=== PATIENT | female | born 1950 | race Caucasian/White ===

== ENCOUNTER → 2021-03-05 | Outpatient (CLI) | payer OTHER ==
[~2021-03-05] MED LIST: ALEVE220 M1 PO; CBD OIL SUBLING; FISH OIL 1,0001 EAC9 PO; JUICE PLUS PO; MAGNESIUM250 M1 PO; REMERON15 M2 PO; TURMERIC500 M2 PO
[2021-03-05 13:40] LABS: HEMATOCRIT 40.1 % (37.0-47.0); HEMOGLOBIN 13.2 gm/dL (12.0-15.0); MCH 31.4 pg (26.0-34.0); MCHC 32.9 g/dL (28.0-37.0); MCV 95.2 fL (80.0-100.0); RBC 4.21 mil/uL (4.20-5.00); RDW 13.4 % (10.5-14.5)
[2021-03-05 13:59] LABS: ALBUMIN 3.9 g/dL (3.4-5.0); CALCIUM 9.6 mg/dL (8.5-10.1); CREATININE 0.7 mg/dL (0.6-1.0); POTASSIUM 4.6 mmol/L (3.5-5.1)
[2021-03-05 14:07] LABS: INR 0.92; PROTIME 10.1 Seconds (10.5-12.1)
[2021-03-05 14:10] LABS: URINE BILIRUBIN NEGATIVE (Negative); URINE BLOOD NEGATIVE (Negative); URINE CLARITY CLEAR; URINE COLOR YELLOW; URINE GLUCOSE-RANDOM* NEGATIVE (Negative); URINE KETONES NEGATIVE (Negative); URINE LEUKOCYTES-REFLEX NEGATIVE (Negative); URINE NITRITE-REFLEX NEGATIVE (Negative); URINE PROTEIN (DIPSTICK) NEGATIVE (Negative); URINE UROBILINOGEN 0.2 E.U./dl (0.2-1.0)
== END ==
LOC: PAC 12:48
PROVIDERS: ATTEND Orthopaedic Surgery
DX: Z01.812 Encounter for preprocedural laboratory examination (principal); M16.11 Unilateral primary osteoarthritis, right hip; Z96.641 Presence of right artificial hip joint

== ENCOUNTER 2021-03-12 07:16 | Observation (INO) | payer OTHER ==
[2021-03-12] VITALS (9 sets, daily range): BP systolic 117–151; BP diastolic 64–78
[~2021-03-12] VITALS: Ht 177.8 cm; Wt 66.8 kg
--- NOTE | 2021-03-12 11:58 | O ---
[facility] [place] [address] OPERATIVE REPORT Name: HANNAH COSTA Room #: 150-1 [facility] M.R.#: [id number] Admission: 03/12/21 Attend Phys: Alexey Metzger MD Discharge: Date of : 52 Report #: [id number] THIS REPORT FOR: cc: ELISSA VITAL Physician not on staff Alexey Metzger MD ~ DATE OF SERVICE: 03/12/2021 PREOPERATIVE DIAGNOSIS: End-stage degenerative arthritis, right hip. POSTOPERATIVE DIAGNOSIS: End-stage degenerative arthritis, right hip. PROCEDURE: Right total hip arthroplasty. SURGEON: Alexey Metzger MD INDICATIONS: This slender, fit generally healthy 70-year-old female has severe end-stage degenerative arthritis of the right hip with evidence of some hip dysplasia and mild lateral subluxation with moderate deformity of the femoral head. She has tried conservative measures without benefit and has elected to go ahead with total hip replacement. DESCRIPTION OF PROCEDURE: The patient was taken to the operating room where she was placed under general anesthesia. Prophylactic intravenous antibiotics were administered. She was turned to the left lateral decubitus position. The right hip, thigh and leg were meticulously prepped and draped. A slightly curving posterolateral skin incision was made centered over the greater trochanter. This was carried through fascia and muscle to expose the posterior aspect of the hip joint. The short external rotators and caps were taken down and preserved and tagged with several #1 FiberWire sutures. The hip was dislocated posteriorly. Marked degenerative change on the femoral head and acetabulum was noted. A femoral neck osteotomy was performed. The canal was prepared using reamers and hand broaches. The Nichols and Nephew hip system was utilized. The size 12 Synergy porous femoral component seemed to fit most appropriately. This was removed and the attention directed to the acetabulum. The acetabulum was sequentially reamed, gradually advancing to a 48 mm reamer. The Nichols and Nephew size 48, 3-hole StikTite shell was selected. This was impacted into her [place]au acetabulum in alignment with her acetabulum, which placed this at about 45 degrees off of vertical and about 20 degrees of anteversion. It seated nicely and appeared to be secure. In addition, two cancellous screws were placed through the apical holes engaging good periacetabular bone adding nicely to secure fixation. A 32 mm diameter polyethylene insert was then applied placing the 20-degree elevated rim at about the 10 o'clock posterior position. This was gently impacted into place. It seated nicely and appeared to be secure. The permanent Nichlos and Nephew size 12 Synergy porous femoral component was then inserted into the canal, placing this in about 15-[address] [address] OPERATIVE REPORT Name: HANNAH COSTA Room #: 150-1 [facility] M.R.#: [id number] Admission: 03/12/21 Attend Phys: Alexey Metzger MD Discharge: Date of : 52 Report #: [id number] anteversion. It also seated nicely and appeared to be secure. After a trial reduction, the hip seemed best suited for a +4 mm neck length. The 32 mm head using the cobalt chromium style with a +4 mm neck length was selected. This was impacted on the Winter taper. The hip was reduced. Alignment, range of motion, stability and leg length were assessed and felt to be satisfactory. The capsule and short external rotators were then repaired back to bone using #1 FiberWire sutures passed through small drill holes in greater trochanter. This also added nicely to stability. A single Hemovac was left in the wound exiting through a separate stab incision. The fascia was then closed with multiple #1 Vicryl sutures. The deeper adipose tissues and subcutaneous tissues were closed with 0 Monocryl. The skin was closed with skin jose. A sterile dressing was applied. The patient was awakened and returned to recovery room in good condition. <ELECTRONICALLY SIGNED> By: Alexey Metzger MD 03/12/21 1158 [id number] Alexey Metzger MD /nt
--- NOTE | 2021-03-12 14:04 | NUR ---
ASSUMED CARE OF PT AT 1325 THIS AFTERNOON. PT HAD TTL RT HIP REPLACEMENT WITH NADIYA DRESSING, ADRIAN HOSE, KNEE HIGH, SCD'S AND ICE PACKS. DRESSING IS C/D/I. VSS, CHARGE NURSE WILL PERFORM SYSTEMS ASSESSMENT. MEDS AND TX GIVEN NEEDED AND SCHEDULED. WILL MONITOR AND NOTE ANY CHANGES.
[2021-03-13 03:35] LABS: HEMATOCRIT 25.7 % (37.0-47.0); HEMOGLOBIN 8.8 gm/dL (12.0-15.0); MCH 32.3 pg (26.0-34.0); MCHC 34.2 g/dL (28.0-37.0); MCV 94.3 fL (80.0-100.0); RBC 2.72 mil/uL (4.20-5.00); RDW 13.4 % (10.5-14.5); WBC 8.3 thou/uL (4.0-11.0)
--- NOTE | 2021-03-13 07:06 | NUR ---
ASSUMED CARE AT 0130. PATIENT WAS RECEIVED SLEEPING IN BED. NON LABORED BREATHING NOTED. IV ANTIBIOTIC ADMINISTERED VIA RIGHT FOREARM, AND IVF RUNNING AT 100ML/HR. NO S/S OF INFECTION OR INFILTRATION NOTED. PATIENT REPORTED PAIN IN RIGHT HIP THIS AM, PRN OXYCODONE ADMINISTERED TO MANAGE PAIN. FALL PRECAUTIONS IN PLACE, NO CONCERNS AT THIS TIME. WILL CONTINUE TO MONITOR.
[2021-03-13 08:38] VITALS: BP 122/72
[2021-03-13] MEDS ORDERED: MIRALAX17 GM PO (08:48)
[2021-03-13] MEDS ORDERED: COLACE100 MG PO (08:48)
[2021-03-13 09:40] LABS: ALBUMIN 2.6 g/dL (3.4-5.0); CALCIUM 8.3 mg/dL (8.5-10.1); CREATININE 0.6 mg/dL (0.6-1.0); MAGNESIUM 1.9 mg/dL (1.8-2.4); POTASSIUM 4.4 mmol/L (3.5-5.1); TOTAL BILIRUBIN 0.3 mg/dL (0.2-1.0); TOTAL PROTEIN 5.3 g/dL (6.4-8.2)
[2021-03-13 12:14] VITALS: BP 122/72
--- NOTE | 2021-03-13 12:36 | NUR ---
PHYSICAL THERAPY RECOMMENDED DC TO HOME FOR PT. THIS RN PAGED DR HAINES TO UPDATE. WHEN DISCUSSING DC, PT INFORMED THIS RN SHE HAS A 4X4 BRONCO TO GET INTO AND OUT OF FOR DC. PAGED PHYSICAL THERAPY FOR ASSIST/DIRECTIONS FOR PT SAFETY. PT STATES SHE ALREADY HAS PAIN MEDICATION PRESCRIPTION FROM DR HAINES AT HOME. DISCUSSED PAIN MANAGEMENT AT HOME AND WHEN TO CALL PHYSICIAN. PT VERBALIZED UNDERSTANDING.
[2021-03-13 13:31] VITALS: BP 122/72
[2021-03-13 15:12] VITALS: BP 122/72
--- NOTE | 2021-03-13 15:13 | NUR ---
PT DC'D WITH SON. PT WAS ABLE TO OBTAIN EXTRA DME FROM [facility] AT [facility]OSP[facility]. PT HAD NO QUESTIONS OR CONCERNS PRIOR TO DC. PT REC'D ADDITIONAL QUESTIONS ANSWERED BY PT AND OT. DR HAINES DID NOT HAVE ANY ADDITIONAL ORDERS PRIOR TO DC. HEMOVAC REMOVED PER ORDER.
== END 2021-03-13 15:04 | disposition home or self-care (01) ==
LOC: OR → TBA 07:40 → 4S 12:49 → OR 15:00 → 4S 16:24
PROVIDERS: ADMIT Orthopaedic Surgery; ATTEND Orthopaedic Surgery
DX: M16.11 Unilateral primary osteoarthritis, right hip (principal); Z20.822 Contact with and (suspected) exposure to COVID-19
CPT/HCPCS: 50010; 50101; 50382; 50414; 51412; 53000; 53367; 56521; 56525; 56530; 57095; 57103; 70005